=== PATIENT | male | born 1995 | race Caucasian/White ===

== ENCOUNTER 2017-05-18 00:25 | Emergency (ER) | payer BC ==
[2017-05-18] MEDS ORDERED: NON (00:46)
[2017-05-18] MEDS ORDERED: PERIDEX118 ML SSP (04:05)
== END 2017-05-18 04:14 ==
LOC: EDMED 00:25
DX: S09.90XA Unspecified injury of head, initial encounter (principal); S02.2XXB Fracture of nasal bones, initial encounter for open fracture; Y04.0XXA Assault by unarmed brawl or fight, initial encounter; Y92.29 Other specified public building as the place of occurrence of the external cause